=== PATIENT | male | born 1995 | race Two or more races ===

== ENCOUNTER 2018-12-10 16:15 | Emergency (ER) | payer SELFPAY ==
[~2018-12-10] VITALS: Ht 175.3 cm; Wt 86.2 kg
--- NOTE | 2018-12-10 16:40 | NUR ---
CRUSHING INJURY,LEFT GREAT TOE AT 1500. PATIENT A/OX4, BREATHING EVEN AND UNLABORED, NO SOB NOTED, DENIES PAIN AT THIS TIME. KEPT COMFORTABLE IN BED, LEFT GREAT TOE COVERED WITH BANDAGE.
[2018-12-10] MEDS ORDERED: LIDOCAINE 1% INJ 50 ML MDV IJ ONE (17:12)
[2018-12-10] MEDS ORDERED: LIDOCAINE HCL/PF 1% 30 ML VIAL TP ONE (19:30)
--- NOTE | 2018-12-10 20:08 | NUR ---
Patient discharged to home in stable condition. Written and verbal after care instructions given. Patient verbalizes understanding of instruction. Pt ambulatory with a steady gait
[2018-12-10 20:09] VITALS: BP 127/74
== END 2018-12-10 20:11 | disposition home or self-care (01) ==
LOC: ER 16:21
DX: S92.422A Displaced fracture of distal phalanx of left great toe, initial encounter for closed fracture (principal); S91.112A Laceration without foreign body of left great toe without damage to nail, initial encounter; F17.200 Nicotine dependence, unspecified, uncomplicated; W20.8XXA Other cause of strike by thrown, projected or falling object, initial encounter; Y93.89 Activity, other specified; Y92.89 Other specified places as the place of occurrence of the external cause; Y99.8 Other external cause status
CPT/HCPCS: 12002; 73660; 99283; A6402; A6403; J3490 ×2

== ENCOUNTER 2018-12-12 09:50 | Outpatient (CLI) | payer SELFPAY | END 2018-12-12 23:59 | disposition home or self-care (01) | LOC: WOU 09:50 | PROVIDERS: ATTEND Podiatrist Foot & Ankle Surgery | DX: T81.89XD Other complications of procedures, not elsewhere classified, subsequent encounter (principal); S92.422D Displaced fracture of distal phalanx of left great toe, subsequent encounter for fracture with routine healing; W31.89XD Contact with other specified machinery, subsequent encounter; L03.032 Cellulitis of left toe; R60.0 Localized edema; L60.1 Onycholysis | CPT/HCPCS: 99215; A6402 ×2; G0463 ==

== ENCOUNTER 2018-12-19 11:05 | Outpatient (CLI) | payer SELFPAY | END 2018-12-19 23:59 | disposition home or self-care (01) | LOC: WOU 11:05 | PROVIDERS: ATTEND Podiatrist Foot & Ankle Surgery | DX: S91.212D Laceration without foreign body of left great toe with damage to nail, subsequent encounter (principal); S92.422D Displaced fracture of distal phalanx of left great toe, subsequent encounter for fracture with routine healing; W31.89XD Contact with other specified machinery, subsequent encounter; M79.675 Pain in left toe(s); L60.1 Onycholysis | CPT/HCPCS: 99214; A6402; G0463 ==

== ENCOUNTER 2018-12-26 10:20 | Outpatient (CLI) | payer OTHER | END 2018-12-26 23:59 | disposition home or self-care (01) | LOC: WOU 10:20 | PROVIDERS: ATTEND Podiatrist Foot & Ankle Surgery | DX: S91.212A Laceration without foreign body of left great toe with damage to nail, initial encounter (principal); W31.89XA Contact with other specified machinery, initial encounter; Y93.89 Activity, other specified; Y92.89 Other specified places as the place of occurrence of the external cause; Y99.0 Civilian activity done for income or pay; S92.422D Displaced fracture of distal phalanx of left great toe, subsequent encounter for fracture with routine healing; M79.675 Pain in left toe(s); L60.1 Onycholysis; R60.0 Localized edema | CPT/HCPCS: 11730; A6402; J3490 ==

== ENCOUNTER 2019-01-02 10:20 | Outpatient (CLI) | payer OTHER | END 2019-01-02 23:59 | disposition home or self-care (01) | LOC: WOU 10:20 | PROVIDERS: ATTEND Podiatrist Foot & Ankle Surgery | DX: S91.112A Laceration without foreign body of left great toe without damage to nail, initial encounter (principal); W31.89XA Contact with other specified machinery, initial encounter; Y92.69 Other specified industrial and construction area as the place of occurrence of the external cause; S92.402D Displaced unspecified fracture of left great toe, subsequent encounter for fracture with routine healing; R60.0 Localized edema; M79.672 Pain in left foot | CPT/HCPCS: 11042 ==

== ENCOUNTER 2019-01-09 10:25 | Outpatient (CLI) | payer OTHER | END 2019-01-09 23:59 | disposition home or self-care (01) | LOC: WOU 10:25 | PROVIDERS: ATTEND Podiatrist Foot & Ankle Surgery | DX: S91.112A Laceration without foreign body of left great toe without damage to nail, initial encounter (principal); W31.89XA Contact with other specified machinery, initial encounter; Y92.69 Other specified industrial and construction area as the place of occurrence of the external cause; Z79.899 Other long term (current) drug therapy | CPT/HCPCS: 11042 ==

== ENCOUNTER 2019-01-16 10:25 | Outpatient (CLI) | payer OTHER | END 2019-01-16 23:59 | disposition home or self-care (01) | LOC: WOU 10:25 | PROVIDERS: ATTEND Podiatrist Foot & Ankle Surgery | DX: S91.112A Laceration without foreign body of left great toe without damage to nail, initial encounter (principal); W31.89XA Contact with other specified machinery, initial encounter; Y92.69 Other specified industrial and construction area as the place of occurrence of the external cause; M79.672 Pain in left foot; S92.422D Displaced fracture of distal phalanx of left great toe, subsequent encounter for fracture with routine healing | CPT/HCPCS: 11042; 73630-TC ==

== ENCOUNTER 2019-01-23 11:27 | Outpatient (CLI) | payer OTHER | END 2019-01-23 23:59 | disposition home or self-care (01) | LOC: WOU 11:27 | PROVIDERS: ATTEND Podiatrist Foot & Ankle Surgery | DX: S92.422D Displaced fracture of distal phalanx of left great toe, subsequent encounter for fracture with routine healing (principal); W31.89XD Contact with other specified machinery, subsequent encounter; M79.672 Pain in left foot; L60.1 Onycholysis; R60.0 Localized edema | CPT/HCPCS: G0463 ==